=== PATIENT | female | born 1955 | race Caucasian/White ===

== ENCOUNTER 2019-05-19 11:58 | Emergency (ER) | payer BC ==
[~2019-05-19] VITALS: Ht 180.3 cm; Wt 145.9 kg
[~2019-05-19 11:58] MED LIST: ATRIN INH; CHOL400T32 PO; CLON0.1T2; DIPH25CA83 PO; EXEN10PE3; FEXO-25 PO; LEVO25TA2 PO; LISI-642 PO; LOVA20TA2 PO; MONT10TA21 PO; VENL-191 PO; ZOLP10TA5 PO; [UNRECOGNIZED DRUG - OTHER]
[2019-05-19 12:19] VITALS: BP 165/83
== END 2019-05-19 13:20 | disposition home or self-care (01) ==
LOC: ER 11:59
DX: M17.12 Unilateral primary osteoarthritis, left knee (principal); E78.00 Pure hypercholesterolemia, unspecified; I10 Essential (primary) hypertension; J45.909 Unspecified asthma, uncomplicated; G47.30 Sleep apnea, unspecified; E11.9 Type 2 diabetes mellitus without complications; G89.29 Other chronic pain; F41.9 Anxiety disorder, unspecified; F32.9 Major depressive disorder, single episode, unspecified; Z87.442 Personal history of urinary calculi; Z90.49 Acquired absence of other specified parts of digestive tract; Z88.0 Allergy status to penicillin; Z88.2 Allergy status to sulfonamides; Z79.899 Other long term (current) drug therapy
CPT/HCPCS: 73564; 99283